=== PATIENT | female | born 1960 | race Caucasian/White ===

== ENCOUNTER 2017-03-09 14:21 | Inpatient (IN) ==
[2017-03-09] MEDS ORDERED: NITROGLYCERIN SL 0.4 MG TABLET SL PRN (16:15)
[2017-03-09] MEDS ORDERED: ONDANSETRON 4 MG/2 ML VIAL IV ONE (16:49)
[2017-03-09] MEDS ORDERED: ONDANSETRON 4 MG/2 ML VIAL ONE (16:50)
[2017-03-09] MEDS ORDERED: MORPHINE 2 MG/1 ML SYRINGE IV PRN (18:15)
[2017-03-09] MEDS ORDERED: ONDANSETRON 4 MG/2 ML VIAL IV PRN (19:42)
[2017-03-09] MEDS: DICLOFENAC 1% GEL 100 GM TUBE TOP SCH (20:28)
[2017-03-09] MEDS ORDERED: ATORVASTATIN 20 MG TABLET PO SCH (21:00)
[2017-03-09] MEDS ORDERED: ENOXAPARIN 40 MG/0.4 ML SYRINGE SUBCUT SCH (21:00)
[2017-03-10] MEDS ORDERED: LEVOTHYROXINE 200 MCG TABLET PO SCH (03:39)
[2017-03-10 05:52] LABS: Albumin 3.1 G/DL (3.4-5.0); Bilirubin,Total 0.7 MG/DL (0.2-1.0); Magnesium 2.2 MG/DL (1.8-2.4); Osmolality,Calculated 274.8 MOS/KG (273-304); Potassium 4.3 MMOL/L (3.5-5.1); Risk Ratio 3.44; Total Protein 7.6 G/DL (6.4-8.3); VLDL CHOLESTEROL 26.2 MG/DL
[2017-03-10 07:09] LABS: Basophils # 0.1 10*3/uL (0.0-0.2); Basophils % 0.6 % (0.0-0.8); Eosinophils # 0.1 10*3/uL (0.0-0.87); Eosinophils % 1.2 % (0.00-10.9); Hematocrit 41.7 VOL% (35.7-47.0); Hemoglobin 13.4 GM/DL (12.0-16.0); Immature Granulocytes % 0.4 %; Immature Granulocytes Absolute 0.03 #; Lymphocytes # 1.6 10*3/uL (1.4-4.0); Mean Corpuscular HGB Conc 32.1 GM/DL (32-36); Mean Corpuscular Hemoglobin 30 PG (27-34); Mean Corpuscular Volume 93.1 FL (87-102); Mean Platelet Volume 12.6 FL (9.6-12.0); Monocytes # 0.5 10*3/uL (0.11-0.8); Monocytes % 5.5 % (1.7-12.7); Neutrophils % 73.3 % (38.7-73.9); Platelet Count 198 T/CUMM (130-400); Red Blood Count 4.48 MC/CUMM (3.8-5.5); White Blood Count 8.2 T/CUMM (4-12)
[2017-03-10] MEDS ORDERED: ASPIRIN EC 81 MG TABLET PO SCH ×2 (09:00→12:30)
[2017-03-10] MEDS ORDERED: PANTOPRAZOLE 40 MG TABLET PO SCH ×2 (09:00→11:15)
[2017-03-10] MEDS ORDERED: MONTELUKAST 10 MG TABLET PO SCH (09:00)
[2017-03-10] MEDS ORDERED: LISINOPRIL 20 MG TABLET PO SCH (11:15)
[2017-03-10] MEDS ORDERED: KETOROLAC 15 MG/1 ML VIAL IV ONE (11:26)
[2017-03-10] MEDS ORDERED: amLODIPine 10 MG TABLET PO SCH (11:30)
[2017-03-10] MEDS ORDERED: SPIRONOLACTONE 25 MG TABLET PO SCH (11:30)
[2017-03-10] MEDS: DICLOFENAC 1% GEL 100 GM TUBE TOP SCH (14:41)
[2017-03-10 19:00] VITALS: BP 141/82
[2017-03-10] MEDS ORDERED: cloNIDine 0.1 MG TABLET PO SCH (21:00)
== END 2017-03-10 18:20 | disposition home or self-care (01) | DRG 313 ==
LOC: EDUNIT# → N.ED 14:21 → N.EDINP 14:57 → SUATTDRO 14:57 → N.TELES 16:59
PROVIDERS: ADMIT Internal Medicine; ATTEND Family Medicine

== ENCOUNTER 2020-03-25 17:22 | Observation (INO) ==
[2020-03-25] MEDS ORDERED: ONDANSETRON 4 MG/2 ML VIAL IV PRN (19:44)
[2020-03-25] MEDS ORDERED: ACETAMINOPHEN 325 MG TABLET PO PRN (19:44)
[2020-03-25] MEDS ORDERED: DEXTROSE 50% 25 GM/50 ML VIAL IV PRN ×2 (19:44→20:04)
[2020-03-25] MEDS ORDERED: GLUCAGON 1 MG VIAL IM PRN (19:44)
[2020-03-25] MEDS ORDERED: ZALEPLON 5 MG CAPSULE PO PRN (19:44)
[2020-03-25] MEDS ORDERED: ENOXAPARIN 100 MG/ML SYRINGE SUBCUT ONE (20:37)
[2020-03-25] MEDS: INSULIN REGULAR 100 UNIT/ML SUBCUT SCH (20:50)
[2020-03-26] MEDS: NITROGLYCERIN 2% OINT 1 INCH/GM PACK TOP SCH ×2 (00:48→06:28)
[2020-03-26 03:56] LABS: Basophils % 0.3 % (0.0-0.8); Eosinophils # 0.2 10*3/uL (0.0-0.87); Eosinophils % 2.8 % (0.00-10.9); Hematocrit 37.1 VOL% (35.7-47.0); Hemoglobin 11.8 GM/DL (12.0-16.0); Immature Granulocytes % 0.5 %; Immature Granulocytes Absolute 0.04 #; Lymphocytes # 2.5 10*3/uL (1.4-4.0); Lymphocytes % 28.8 % (21.3-54.2); Mean Corpuscular HGB Conc 31.8 GM/DL (32-36); Mean Corpuscular Volume 91.2 FL (87-102); Mean Platelet Volume 12.1 FL (9.6-12.0); Neutrophils % 60.6 % (38.7-73.9); Platelet Count 180 T/CUMM (130-400); Red Blood Count 4.07 MC/CUMM (3.8-5.5); Red Cell Distribution Width 14.6 % (9.3-17.3); White Blood Count 8.7 T/CUMM (4-12)
[2020-03-26 04:17] LABS: Albumin 2.9 G/DL (3.4-5.0); Bilirubin,Total 0.7 MG/DL (0.2-1.0); Calcium 8.4 MG/DL (8.5-10.1); Osmolality,Calculated 281.4 MOS/KG (273-304); Total Protein 6.6 G/DL (6.4-8.3)
[2020-03-26 04:34] LABS: Risk Ratio 3.45
[2020-03-26] MEDS: INSULIN REGULAR 100 UNIT/ML SUBCUT SCH ×2 (07:46→13:21)
[2020-03-26] MEDS ORDERED: PANTOPRAZOLE 40 MG TABLET PO SCH (09:00)
[2020-03-26] MEDS ORDERED: lisinopriL 20 MG TABLET PO SCH (09:00)
[2020-03-26] MEDS ORDERED: FUROSEMIDE 20 MG TABLET PO SCH (09:00)
[2020-03-26] MEDS ORDERED: ASPIRIN EC 325 MG TABLET PO SCH (09:00)
[2020-03-26] MEDS ORDERED: ENOXAPARIN 150 MG/ML SYRINGE SUBCUT SCH (09:00)
[2020-03-26] MEDS ORDERED: SPIRONOLACTONE 25 MG TABLET PO SCH (09:00)
[2020-03-26] MEDS ORDERED: NEBIVOLOL 10 MG TABLET PO SCH (10:00)
[2020-03-26] MEDS ORDERED: amLODIPine 10 MG TABLET PO SCH (10:00)
[2020-03-26 15:28] VITALS: BP 188/90
[2020-03-26] MEDS ORDERED: cloNIDine 0.1 MG TABLET PO SCH (21:00)
[2020-03-26] MEDS ORDERED: ROSUVASTATIN 20 MG TABLET PO SCH (21:00)
[2020-03-26] MEDS ORDERED: DIPYRIDAMOLE/ASPIRIN 200-25 MG CAPSULE PO SCH (21:00)
== END 2020-03-26 15:35 | disposition home or self-care (01) ==
LOC: N.TELES
PROVIDERS: ADMIT Internal Medicine; ATTEND Internal Medicine